=== PATIENT | male | born 1980 ===

== ENCOUNTER 2018-02-04 05:38 | Inpatient (IN) | payer OTHER ==
[2018-02-04] VITALS (14 sets, daily range): BP systolic 98–123; BP diastolic 49–74
[~2018-02-04] VITALS: Ht 165.1 cm; Wt 136.5 kg
[~2018-02-04 05:38] MED LIST: NKM; ceFAZolin sod 2 GM in D5W 110 ML IVPB ONE
[2018-02-04] MEDS ORDERED: LR 1000ml 1,000 ML IVLG SCH (06:19)
--- NOTE | 2018-02-04 06:23 | Immediate Post-Op Evaluation ---
Immediate Post-Op Evalulation Immediate Post-Op Evalulation Procedure: TLIF L5-S1 Date of Evaluation: Feb 04, 2018 Blood Products: 0 Pain Score (1-10): 2 Nausea: No Vomiting: No Complications 0 Patient Status: awake, reacts, patent, extubated, none Hydration Status: adequate Dru Grams Ancef IV Given Within 1 Hr of Incision: Yes Time Given: 07:41 Lukasz Burnett MD Feb 04, 2018 06:23
[2018-02-04] MEDS ORDERED: Zemuron 50mg/5ml Inj IV ONE (06:25)
[2018-02-04] MEDS ORDERED: HYDROcodone/Acetamin 7.5/325 tab ORAL PRN ×2 (06:30→13:00)
[2018-02-04] MEDS ORDERED: oxyCODONE HCL/Acetaminophen 5/325mg ORAL PRN (06:30)
[2018-02-04] MEDS ORDERED: LORazepam Inj 2mg/ml 1ml IV PRN (06:30)
[2018-02-04] MEDS ORDERED: Norco 5mg/325mg tab ORAL PRN ×2 (06:30→13:00)
[2018-02-04] MEDS ORDERED: Ketorolac 30mg Inj IV PRN ×2 (06:30)
[2018-02-04] MEDS ORDERED: Meperidine 50mg/ml Inj(FOR RIGORS ONLY) IVP PRN (06:30)
[2018-02-04] MEDS ORDERED: Acetaminophen (Non formulary) 100 ML IV ONE (06:30)
[2018-02-04] MEDS ORDERED: Midazolam 2mg/2ml Inj IVP PRN (06:30)
[2018-02-04] MEDS ORDERED: Hydromorphone 0.5mg/0.5ml inj IVP PRN (06:30)
[2018-02-04] MEDS ORDERED: Metoclopramide 10mg/2ml Inj IVP PRN (06:30)
[2018-02-04] MEDS ORDERED: fentaNYL 100 mcg/2 mL IV PRN (06:30)
[2018-02-04] MEDS ORDERED: DiphenhydrAMINE 50mg/ml Inj IVP PRN (06:30)
[2018-02-04] MEDS ORDERED: Atropine Sulfate 0.4mg/ml inj IVP PRN (06:30)
[2018-02-04] MEDS ORDERED: Dexamethasone 4mg/ml vial ONE (06:51)
[2018-02-04] MEDS ORDERED: Sodium Chloride 10ml vial INJ ONE (06:51)
[2018-02-04] MEDS ORDERED: Lidocaine 1% MPF 10mg/ml 5ml ONE (06:51)
[2018-02-04] MEDS ORDERED: Lidocaine 1% Plain 30 ml INJ ONE ×3 (06:51→10:47)
[2018-02-04] MEDS ORDERED: fentaNYL 100 mcg/2 mL IV ONE ×4 (06:52→10:56)
[2018-02-04] MEDS ORDERED: Vancomycin 1gm inj IVPB ONE (07:05)
[2018-02-04] MEDS ORDERED: Gelfoam Size TOPIC ONE (07:06)
[2018-02-04] MEDS ORDERED: Heparin 5000 units/ml inj ONE (07:06)
[2018-02-04] MEDS ORDERED: Thrombin 5000 units TOPIC ONE (07:06)
[2018-02-04] MEDS ORDERED: Bacitracin 50000 Units Vial ONE (07:07)
[2018-02-04] MEDS ORDERED: Bupivacaine w/Epi 0.5% 30ml Vial INJ ONE (07:07)
[2018-02-04] MEDS ORDERED: NS Irrig 1000ml ONE (07:30)
[2018-02-04] MEDS ORDERED: LR 1000ml ONE (07:30)
[2018-02-04] MEDS ORDERED: Propofol 1,000mg/ 100ml btl IV ONE (07:30)
[2018-02-04] MEDS ORDERED: Sterile Water Irrig 1000ml IRRIG ONE (07:30)
[2018-02-04] MEDS ORDERED: Heparin 1000 units/ml 1ml Vial ONE (07:44)
--- NOTE | 2018-02-04 07:54 | Pre-Procedure Note/Attestation ---
Pre-Procedure Note/Attestation Complete Prior to Procedure Procedure Narrative: TLIF L5S1 with instrumentation and iliac bone marrow aspiration Attestation I attest that I discussed the nature of the procedure; its benefits; risks and complications; and alternatives (and the risks and benefits of such alternatives ), prior to the procedure, with the patient (or the patient's legal electroplating sales representative). I attest that, if there was a reasonable possibility of needing a blood transfusion, the patient (or the patient's legal electroplating sales representative) was given the [facility] standardized written summary, pursuant to the David Pia Blood Safety Act ([place] Health and Safety Code # 1645, as amended). I attest that I re-evaluated the patient just prior to the surgery and that there has been no change in the patient's H&P, except as documented below: Edward Dill MD Feb 04, 2018 07:54
--- NOTE | 2018-02-04 08:14 | Anethesia Preoperative Eval ---
Anesthesia Pre-op PMH/ROS General Date of Evaluation: Feb 04, 2018 Time of Evaluation: 07:26 Anesthesiologist: Luis F ASA Score: ASA 2 Mallampati Score Class I : Soft palate, uvula, fauces, pillars visible Class II: Soft palate, uvula, fauces visible Class III: Soft palate, base of uvula visible Class IV: Only hard plate visible Mallampati Classification: Class II Surgeon: Aniyah Diagnosis: Back Pain Surgical Procedure: TLIF L5-S1 Anesthesia History: none Family History: no anesthesia problems Allergies: Coded Allergies: No Known Allergies (Unverified , 02/04/18) Medications: see eMAR Patient NPO?: Yes NPO Date: Feb 03, 2018 NPO Time: 2300 Past Medical History Other: obesity - BMI 32 Anesthesia Pre-op Phys. Exam Physician Exam Last Vital Signs Date Time Temp Pulse Resp B/P (MAP) Pulse Ox O2 Delivery O2 Flow Rate FiO2 02/04/18 06:52 Room Air 02/04/18 06:51 97.8 69 18 123/74 (90) 99 Constitutional: NAD Neurologic: CN 2-12 intact Cardiovascular: RRR Respiratory: CTA Gastrointestinal: S/NT/ND Airway Exam Mallampati Score: Class II MO: full ROM: full Teeth: intact Anesthesia Pre-op A/P Risk Assessment & Plan Assessment: ASA 2 Plan: GA, SED, GlideScope Go Status Change Before Surgery: No Pre-Antibiotics Dru Grams Ancef IV Given Within 1 Hr of Incision: Yes Time Given: 07:41 Lukasz Burnett MD Feb 04, 2018 08:14
--- NOTE | 2018-02-04 08:15 | Immediate Post-Op Evaluation ---
Immediate Post-Op Evalulation Immediate Post-Op Evalulation Procedure: TLIF L5-S1 Date of Evaluation: Feb 04, 2018 Time of Evaluation: 12:55 IV Fluids: 1000 LR Blood Products: 0 Estimated Blood Loss: 100 Urinary Output: 1000 Blood Pressure Systolic: 102 Blood Pressure Diastolic: 60 Pulse Rate: 101 Respiratory Rate: 16 O2 Sat by Pulse Oximetry: 98 Temperature (Fahrenheit): 97.4 Pain Score (1-10): 2 Nausea: No Vomiting: No Complications 0 Patient Status: awake, reacts, patent, extubated, none Hydration Status: adequate Dru Grams Ancef IV Given Within 1 Hr of Incision: Yes Time Given: 07:41 Lukasz Burnett MD Feb 04, 2018 08:15
[2018-02-04] MEDS ORDERED: Labetalol 5mg/ml 20ml vial IV ONE (08:37)
[2018-02-04] MEDS ORDERED: Naloxone 0.4mg/ml Inj ONE (11:42)
--- NOTE | 2018-02-04 12:47 | Brief Operative Note ---
Immediate Post Operative Note Operative Note Pre-op Diagnosis: lumbar spondylosis and radiculopathy Procedure: tlif l5s1 with iliac bone marrow aspiration Post-op Diagnosis: same as pre-op Findings: consistent w/pre-op dx studies Surgeon: Aniyah Mine Engineering Superintendent: Marcia Anesthesiologist: Mariusz Anesthesia: general Specimen: yes Complications: none Condition: stable Fluids: 1000cc fluids Estimated Blood Loss: volume - 100cc Drains: none Implant(s) used?: Yes Edward Dill MD Feb 04, 2018 12:47
[2018-02-04] MEDS ORDERED: HYDROmorphone 1mg/ml Carpuject SUBQ PRN (13:00)
[2018-02-04] MEDS ORDERED: Naloxone 0.4mg/ml Inj IVP PRN (13:00)
--- NOTE | 2018-02-04 13:02 | Diagnostic Imaging Report ---
INDICATION: Pain, intraoperative TECHNIQUE: Intraoperative imaging Fluoroscopy time: 31.4 seconds Total dose: 0.29713 mGym2 Total number of images: 5 COMPARISON: None FINDINGS: Intraoperative imaging demonstrates surgical tool's projected posterior to what are presumably the L3 and L5 vertebral bodies, subsequently a surgical tool projected posterior to what is presumably the L5-S1 disc. Subsequent images document posterior fusion and placement of a disc spacer at L5-S1 IMPRESSION: Intraoperative imaging, as described
[2018-02-04] MEDS ORDERED: ceFAZolin sod 1 GM in D5W 55 ML IV SCH (14:00)
[2018-02-04] MEDS: ceFAZolin sod 1 GM in D5W 55 ML IV SCH ×2 (15:55→23:58)
[2018-02-04] MEDS: D5 1/2NS 1,000 ML IV SCH ×2 (16:40→23:58)
[2018-02-04] MEDS: Docusate 100mg cap ORAL SCH (17:21)
[2018-02-05] MEDS: HYDROcodone/Acetamin 7.5/325 tab ORAL PRN ×5 (00:06→16:55)
[2018-02-05 04:00] VITALS: BP 114/59
[2018-02-05 06:30] LABS: BASOPHILS % (AUTO) 0.4 % (0.0-2.0); EOSINOPHILS % (AUTO) 0.3 % (0.0-3.0); HEMATOCRIT 34.8 % (42.0-52.0); HEMOGLOBIN 12.3 G/DL (14.2-18.0); LYMPHOCYTES % (AUTO) 12.2 % (20.0-45.0); MEAN CORPUSCULAR VOLUME 85 FL (80-99); MONOCYTES % (AUTO) 6.4 % (1.0-10.0); NEUTROPHILS % (AUTO) 80.8 % (45.0-75.0); PLATELET COUNT 253 K/UL (150-450); RED BLOOD COUNT 4.09 M/UL (4.70-6.10); RED CELL DISTRIBUTION WIDTH 10.9 % (11.6-14.8); WHITE BLOOD COUNT 13.9 K/UL (4.8-10.8)
[2018-02-05 08:00] VITALS: BP 105/55
[2018-02-05] MEDS: Docusate 100mg cap ORAL SCH ×2 (08:02→18:37)
[2018-02-05] MEDS: ceFAZolin sod 1 GM in D5W 55 ML IV SCH ×3 (08:02→23:50)
[2018-02-05] MEDS: D5 1/2NS 1,000 ML IV SCH ×2 (08:03→18:38)
[2018-02-05] MEDS: HYDROmorphone 1mg/ml Carpuject IVP PRN ×3 (09:06→18:38)
[2018-02-05 12:00] VITALS: BP 123/68
[2018-02-05 16:00] VITALS: BP 115/67
--- NOTE | 2018-02-05 16:02 | General Progress Note ---
Subjective Allergies: Coded Allergies: No Known Allergies (Unverified , 02/04/18) Subjective Patient doing well post op. Min LBP and no leg pain Ambulating and eating well AVSS A adn O times 3 Dressing is CDI 5/5 motor in the LE calves soft and nt cr less than 2 sec H and H stable over 30 Hct A: doing well on pod one oob and pt labs follow up medicine hv 200 cc will keep in for now dc tomorrow with pain meds Objective Last 24 Hour Vital Signs Date Time Temp Pulse Resp B/P (MAP) Pulse Ox O2 Delivery O2 Flow Rate FiO2 02/05/18 12:00 98.7 93 17 123/68 (86) 95 02/05/18 08:30 Nasal Cannula 2.0 28 02/05/18 08:30 98 Nasal Cannula 2.0 28 02/05/18 08:10 Nasal Cannula 2.0 02/05/18 08:00 98.2 99 18 105/55 (72) 99 02/05/18 04:00 97.7 96 18 114/59 (77) 97 02/04/18 23:38 97.7 97 20 101/62 (75) 97 02/04/18 21:00 Nasal Cannula 2.0 02/04/18 20:00 97.8 96 18 98/60 (73) 97 02/04/18 16:15 97.3 02/04/18 16:00 97.3 97 19 104/49 (67) 97 Intake and Output 02/04/18 02/05/18 19:00 07:00 Intake Total 2295 ml 1465 ml Output Total 1675 ml 1640 ml Balance 620 ml -175 ml Intake Oral 240 ml 360 ml IV Total 2055 ml 1105 ml Output Urine Total 1450 ml 1600 ml Drainage Total 125 ml 40 ml Estimated Blood Loss 100 ml Laboratory Tests 02/05/18 05:05: White Blood Count 13.9H, Red Blood Count 4.09L, Hemoglobin 12.3L, Hematocrit 34.8L, Mean Corpuscular Volume 85, Mean Corpuscular Hemoglobin 30.0, Mean Corpuscular Hemoglobin Concent 35.2, Red Cell Distribution Width 10.9L, Platelet Count 253, Mean Platelet Volume 8.5, Neutrophils (%) (Auto) 80.8H, Lymphocytes (%) (Auto) 12.2L, Monocytes (%) (Auto) 6.4, Eosinophils (%) (Auto) 0.3, Basophils (%) (Auto) 0.4 Height (Feet): 5 Height (Inches): 5.00 Weight (Pounds): 301 Edward Dill MD Feb 05, 2018 16:02
--- NOTE | 2018-02-05 16:16 | 48 Hour Post Anesthesia Eval ---
Post Anesthesia Evaluation Procedure: TLIF L5-S1 Date of Evaluation: Feb 05, 2018 Time of Evaluation: 16:14 Blood Pressure Systolic: 128 0: 74 Pulse Rate: 76 Respiratory Rate: 20 Temperature (Fahrenheit): 97.6 O2 Sat by Pulse Oximetry: 98 Airway: patent Nausea: No Vomiting: No Pain Intensity: 2 Hydration Status: adequate Cardiopulmonary Status: stable Mental Status/LOC: patient returned to baseline Follow-up Care/Observations: n/a Post-Anesthesia Complications: none Follow-up care needed: N/A Terry De La Torre MD Feb 05, 2018 16:16
[2018-02-05 20:00] VITALS: BP 104/63
--- NOTE | 2018-02-05 22:15 | Operative Note - Dictated ---
DATE OF OPERATION: 02/04/2018 PREOPERATIVE DIAGNOSIS: L5-S1 spondylosis and stenosis, left lower extremity radiculopathy with positive diskography and negative control. POSTOPERATIVE DIAGNOSIS: L5-S1 spondylosis and stenosis, left lower extremity radiculopathy with positive diskography and negative control. PROCEDURE PERFORMED: 1. Pedicle screw instrumentation at L5-S1. 2. Posterolateral arthrodesis at L5-S1. 3. Interbody arthrodesis at L5-S1. 4. Acquisition of bone marrow aspirate from right iliac bone with subsequent concentrate for fusion. 5. Placement of local autograft, allograft, and bone marrow aspirate concentrate for interbody fusion and posterolateral fusion. 6. Intraoperative use of microscope for microdissection. 7. Placement of biomechanical device at L5-S1. SURGEON: Edward Dill M.D. TRANSIT OPERATOR: Florentino Kennedy M.D. ANESTHESIA: General endotracheal anesthesia. ANESTHESIOLOGIST: Lukasz Burnett M.D. INTRAOPERATIVE FINDINGS: A disk collapse at L5-S1 with spondylosis and neural foraminal stenosis. ESTIMATED BLOOD LOSS: 100 mL. FLUIDS: 1 L of crystalloid. INDICATIONS: This is a pleasant gentleman, who failed nonoperative treatment and continued to have significant low back pain and left lower extremity radiculopathy with failed nonoperative treatments. Option for above treatment was given. Risks, alternatives, and benefits were discussed with the patient thoroughly. Risks include, but are not limited to anesthesia and complications including , medical complications including liver, kidney, cardiopulmonary deficits, bleeding, infection, dural tear, CSF leak, nerve root injury, pars fracture, instability, reherniation, and continued symptoms. DESCRIPTION OF OPERATION: The patient was brought into the operating room supine on a stretcher. Subsequently, appropriate IV lines were placed and 2 g of Ancef was administered. Anesthesia was induced. The patient was successfully intubated. Sequential compression devices were placed onto the bilateral lower extremities. A Rutledge was placed under sterile conditions. The patient was gently turned over onto the Lei frame table. All bony prominences were well padded. The abdomen was assured to lay freely. The L5-S1 interspace was positively identified with preoperative fluoroscopy and an indelible marker was used to lobito the midline at the level of L5-S1 interspace. The back was prepped and draped in the usual sterile fashion with alcohol, chlorhexidine scrub, ChloraPrep, and Ioban draping. Me and my fleet assistant were prepped and gowned appropriately and at this point, with the use of the intraoperatively sterilely draped microscope, an incision was made over the midline and attention was diverted to dissection with monopolar and bipolar cautery. Dissection was carried out at L5-S1 to the sacral ala as well as the transverse processes bilaterally at L5. Retractors were set in place and a radiopaque marker was placed at the lower pedicle level and lateral fluoroscopy revealed the marker to be at the level of the S1 pedicle and the L5-S1 interspace was positively identified. Attention now was diverted to the left side and an interlumbar laminotomy, medial facetectomy, and removal of ligamentum flavum was initially done. A skeletonization of the left S1 pedicle was done. Now, once the ligamentum flavum was removed, a large cuca was placed on the dura, protecting the neural elements and with a high-speed drill, a radical facetectomy and complete facetectomy of L5 and S1 on the left side was done. Hemostasis was achieved with Gelfoam, thrombin, and bipolar cautery. The exiting L5 nerve root was found to be stenosed and impinged, and once the total facetectomy was completed, the exiting nerve root was found to be free. Now, attention was diverted to the disk with a Williamson 4 retractor and the use of the intraoperatively sterilely draped microscope and with microdissection of neural elements, the neural elements were carefully medially retracted and a disk protrusion was found at L5-S1. With a #11 blade, a box incision was carried out at L5-S1 and with the use of different types of disk preparation, instruments including dilators, karissa, and box karissa, oval karissa, Sunil curettes, Jackson probe, pituitary rongeurs, forward angled straight, and Peapod, a radical diskectomy was accomplished at L5-S1. Endplate cartilage was removed. Endplate bone was well preserved. At this point, attention was diverted to acquiring the bone marrow aspirate. A bone marrow aspirate from the right iliac bone initially was done with a Jamshidi needle and three 10 mL syringes were filled with bone marrow aspirate and was handed off sterilely off the field for concentration. The concentrate was mixed with the local autograft as well as [place] allograft for later implantation into the interbody space and the posterolateral gutters. Once this was done, now attention was diverted to placing the RTI [employer] Surgical system was used and an 8 mm in height and 22 mm in length [employer] implant, biomechanical device was chosen and was tamped into place at L5-S1. Before this was done, interspinous process spacer distraction device was used to distract the disk space and then the implant was placed. Before the biomechanical device was placed, bone morphogenic protein Roel putty allograft, which was mixed with bone marrow aspirate concentrate was placed anteriorly to the biomechanical device and then the biomechanical device was placed, which was also packed with the same biological allograft, autograft, and bone marrow concentrate. Once this was done, AP and lateral fluoroscopy revealed that the biomechanical device to be in excellent position. There was no subsidence of the endplate. The endplates were stable and there was recreation of disk height and achievement of local lordosis at L5-S1. Once this was accomplished, now attention was diverted to completing the decompression. Further removal of the S1 lamina was done for a complete decompression, not only the foramina, both the lateral recess and the central canal Valsalva at 40 mmHg was done. There was no CSF leak and now attention was diverted to placement of the pedicle screws from the Doyle System. The mammillary processes were found and drilled appropriately and with Lenke probe, pedicle finders from the [employer] system. The center of the pedicles were found. Ball-tip probes were used to check the pedicle. There were no cortical breaches. Appropriate-sized caps were placed and the following pedicle screws were placed at L5 bilaterally, a 6.5 x 40 mm instrument and S1 bilaterally 6.5 x 40 mm screw. Each screw had excellent purchase and looked to be in excellent position on the AP and lateral fluoroscopy. Once this was done, stimulus-evoked EMG was done of each pedicle screw and until 20 amps of current, there was no conduction in the respective nerve roots and the screws were deemed safe. Pt remained stable throughout the case and now attention was diverted to doing the posterolateral arthrodesis, decortication of the lamina at the transverse processes of the sacral ala on the right side was done, and fat posterolateral gutter was packed with allograft, autograft, bone marrow, and bone marrow aspirate concentrate. The BMP was not used in that area. At this point, 4 mL of Tisseel fibrin glue was placed at the angle of the site to prevent posterior migration of BMP and attention now was diverted to placement of rods. Two 40 mm rods were chosen, was bent into a lordotic shape, and were placed in. Edward Dill M.D. DR: AMNA JOB#: [id number] CC: SIENNA
--- NOTE | 2018-02-05 22:15 | Operative Note - Dictated ---
DATE OF OPERATION: 02/05/2018 ADDENDUM Set screws were now placed appropriately and there was no cross threading. There were four appropriately as well and now for the posterolateral arthrodesis, it was completed and allograft, autograft, and bone marrow aspirate were placed into the posterolateral gutters. Before this was done, the wound was copiously irrigated multiple times during the case with triple antibiotic solution. Valsalva was done at 40 mmHg. There was no CSF leak and now, attention was diverted to closure. There was minimal bleeding. Hemostasis was achieved with bipolar cautery, Gelfoam, thrombin, and FloSeal. A subfascial Hemovac drain was placed. The dorsal lumbar fascia was closed with #1 Vicryl sutures in a watertight interrupted fashion. Triple antibiotic solution again was placed. A 1 g of vancomycin powder was placed, half of it subfascial and half of it suprafascial, and the dermal and subcuticular layers were closed with 2-0 Vicryl sutures. The skin was closed with Dermabond. Sterile dressing tape was placed. All sponge, needle, and instrument counts were correct. There were no complications during the case. EBL was 100 mL. Fluids were 1000 mL of crystalloid. At this point, the patient was turned supine and extubated in stable condition, was taken to the recovery room in stable condition, was found to be neurovascularly intact, was admitted to the hospital for monitoring and postoperative instructions were given. Edward Dill M.D. DR: JAY JAY JOB#: [id number] CC:
[2018-02-06] VITALS: BP 112/68
[2018-02-06 04:00] VITALS: BP 118/76
[2018-02-06] MEDS: D5 1/2NS 1,000 ML IV SCH ×2 (05:00→14:50)
[2018-02-06 07:55] LABS: BASOPHILS % (AUTO) 1.5 % (0.0-2.0); EOSINOPHILS % (AUTO) 3.3 % (0.0-3.0); HEMATOCRIT 33.6 % (42.0-52.0); HEMOGLOBIN 11.4 G/DL (14.2-18.0); LYMPHOCYTES % (AUTO) 30.3 % (20.0-45.0); MEAN CORPUSCULAR VOLUME 86 FL (80-99); MONOCYTES % (AUTO) 7.1 % (1.0-10.0); NEUTROPHILS % (AUTO) 57.8 % (45.0-75.0); PLATELET COUNT 185 K/UL (150-450); RED BLOOD COUNT 3.92 M/UL (4.70-6.10); RED CELL DISTRIBUTION WIDTH 11.5 % (11.6-14.8); WHITE BLOOD COUNT 10.4 K/UL (4.8-10.8)
[2018-02-06 08:00] VITALS: BP 95/70
[2018-02-06] MEDS: ceFAZolin sod 1 GM in D5W 55 ML IV SCH ×2 (08:14→16:02)
[2018-02-06] MEDS: Docusate 100mg cap ORAL SCH ×2 (08:15→17:35)
[2018-02-06 12:00] VITALS: BP 111/75
[2018-02-06] MEDS ORDERED: D5 1/2NS 1000ml IV ONE (14:34)
[2018-02-06 16:00] VITALS: BP 121/73
[2018-02-06] MEDS: HYDROcodone/Acetamin 7.5/325 tab ORAL PRN (18:49)
[2018-02-06 20:00] VITALS: BP 116/67
[2018-02-07] VITALS: BP 108/64
[2018-02-07] MEDS: D5 1/2NS 1,000 ML IV SCH ×3 (01:18→22:24)
[2018-02-07] MEDS: ceFAZolin sod 1 GM in D5W 55 ML IV SCH ×3 (01:19→15:49)
[2018-02-07 04:00] VITALS: BP 121/77
[2018-02-07 08:00] VITALS: BP 117/80
[2018-02-07] MEDS ORDERED: D5 1/2NS 1000ml IV ONE (08:15)
[2018-02-07] MEDS: Docusate 100mg cap ORAL SCH ×2 (08:47→18:00)
[2018-02-07] MEDS: HYDROcodone/Acetamin 7.5/325 tab ORAL PRN ×3 (10:00→22:24)
[2018-02-07 12:00] VITALS: BP 141/67
[2018-02-07 16:00] VITALS: BP 130/70
--- NOTE | 2018-02-07 17:19 | General Progress Note ---
Subjective Date patient seen: Feb 05, 2018 Allergies: Coded Allergies: No Known Allergies (Unverified , 02/04/18) Subjective Patient doing well post op. Min LBP and no leg pain Ambulating and eating well AVSS A adn O times 3 Dressing is CDI 5/5 motor in the LE calves soft and nt cr less than 2 sec H and H stable over 30 Hct A: doing well on pod one oob and pt labs follow up medicine hv 200 cc will keep in for now dc tomorrow with pain meds Objective Last 24 Hour Vital Signs Date Time Temp Pulse Resp B/P (MAP) Pulse Ox O2 Delivery O2 Flow Rate FiO2 02/07/18 16:00 99.0 88 18 130/70 (90) 98 02/07/18 13:50 97.9 02/07/18 12:00 99.6 100 19 141/67 (91) 97 02/07/18 09:00 Room Air 02/07/18 08:00 98.8 96 18 117/80 (92) 99 02/07/18 04:35 100.2 02/07/18 04:34 100.2 02/07/18 04:00 100.8 104 20 121/77 (92) 97 02/07/18 00:00 99.2 103 18 108/64 (79) 96 02/06/18 21:00 Room Air 02/06/18 20:00 99.3 98 20 116/67 (83) 97 02/06/18 18:00 100.2 Intake and Output 02/06/18 02/07/18 19:00 07:00 Intake Total 580 ml 2455 ml Output Total 330 ml 1030 ml Balance 250 ml 1425 ml Intake Oral 480 ml 600 ml IV Total 100 ml 1855 ml Output Urine Total 300 ml 1000 ml Drainage Total 30 ml 30 ml # Voids 3 Height (Feet): 5 Height (Inches): 5.00 Weight (Pounds): 301 Edward Dill MD Feb 07, 2018 17:19
--- NOTE | 2018-02-07 17:23 | General Progress Note ---
Subjective Allergies: Coded Allergies: No Known Allergies (Unverified , 02/04/18) Subjective 02-05-18 Patient doing well post op. Min LBP and no leg pain Ambulating and eating well AVSS A adn O times 3 Dressing is CDI 5/5 motor in the LE calves soft and nt cr less than 2 sec H and H stable over 30 Hct A: doing well on pod one oob and pt labs follow up medicine hv 200 cc will keep in for now dc tomorrow with pain meds 02-07-18 computer not allowing to refresh prior note Doing well. Some sweats but no leg pain. LBP. Avss a and o times 3; anxious inc cdi hv out 5/5 motor in the le calves soft and nt lt intact Labs stable a: doing well with anxiety ativan finished abx oob and pt dc tomorrow Objective Last 24 Hour Vital Signs Date Time Temp Pulse Resp B/P (MAP) Pulse Ox O2 Delivery O2 Flow Rate FiO2 02/07/18 16:00 99.0 88 18 130/70 (90) 98 02/07/18 13:50 97.9 02/07/18 12:00 99.6 100 19 141/67 (91) 97 02/07/18 09:00 Room Air 02/07/18 08:00 98.8 96 18 117/80 (92) 99 02/07/18 04:35 100.2 02/07/18 04:34 100.2 02/07/18 04:00 100.8 104 20 121/77 (92) 97 02/07/18 00:00 99.2 103 18 108/64 (79) 96 02/06/18 21:00 Room Air 02/06/18 20:00 99.3 98 20 116/67 (83) 97 02/06/18 18:00 100.2 Intake and Output 02/06/18 02/07/18 19:00 07:00 Intake Total 580 ml 2455 ml Output Total 330 ml 1030 ml Balance 250 ml 1425 ml Intake Oral 480 ml 600 ml IV Total 100 ml 1855 ml Output Urine Total 300 ml 1000 ml Drainage Total 30 ml 30 ml # Voids 3 Height (Feet): 5 Height (Inches): 5.00 Weight (Pounds): 301 Edward Dill MD Feb 07, 2018 17:23
[2018-02-07] MEDS ORDERED: LORazepam 1mg tab ORAL PRN (17:30)
[2018-02-07 20:00] VITALS: BP 112/61
[2018-02-08] VITALS (7 sets, daily range): BP systolic 110–130; BP diastolic 63–83
[2018-02-08] MEDS: ceFAZolin sod 1 GM in D5W 55 ML IV SCH ×2 (00:33→07:51)
[2018-02-08] MEDS: HYDROmorphone 1mg/ml Carpuject IVP PRN (02:41)
[2018-02-08] MEDS: D5 1/2NS 1,000 ML IV SCH ×2 (06:48→16:42)
[2018-02-08] MEDS: Docusate 100mg cap ORAL SCH ×2 (08:46→18:00)
[2018-02-08 18:18] LABS: BASOPHILS % (AUTO) 1.2 % (0.0-2.0); EOSINOPHILS % (AUTO) 4.9 % (0.0-3.0); HEMATOCRIT 35.3 % (42.0-52.0); HEMOGLOBIN 12.3 G/DL (14.2-18.0); LYMPHOCYTES % (AUTO) 23.7 % (20.0-45.0); MEAN CORPUSCULAR VOLUME 86 FL (80-99); MONOCYTES % (AUTO) 4.8 % (1.0-10.0); NEUTROPHILS % (AUTO) 65.5 % (45.0-75.0); PLATELET COUNT 272 K/UL (150-450); RED BLOOD COUNT 4.13 M/UL (4.70-6.10); RED CELL DISTRIBUTION WIDTH 10.7 % (11.6-14.8); WHITE BLOOD COUNT 10.3 K/UL (4.8-10.8)
[2018-02-08 18:26] LABS: ANION GAP 8 mmol/L (5-15); BLOOD UREA NITROGEN 14 mg/dL (7-18); CALCIUM 8.9 MG/DL (8.5-10.1); CARBON DIOXIDE 30 MMOL/L (21-32); CHLORIDE 102 MMOL/L (98-107); CREATININE 1.2 MG/DL (0.55-1.30); POTASSIUM 4.1 MMOL/L (3.5-5.1); SODIUM 140 MMOL/L (136-145)
[2018-02-08 18:30] LABS: ALANINE AMINOTRANSFERASE 45 U/L (12-78); ALBUMIN 3.3 G/DL (3.4-5.0); ALBUMIN/GLOBULIN RATIO 0.9 (1.0-2.7); ALKALINE PHOSPHATASE 65 U/L (46-116); ASPARTATE AMINO TRANSFERASE 23 U/L (15-37); BILIRUBIN,TOTAL 0.4 MG/DL (0.2-1.0)
[2018-02-08 18:50] LABS: BILIRUBIN, URINE NEGATIVE (NEGATIVE); COLOR,URINE PALE YELLOW; GLUCOSE, URINE (UA) NEGATIVE (NEGATIVE); KETONES,URINE NEGATIVE (NEGATIVE); LEUKOCYTE ESTERASE ,URINE NEGATIVE (NEGATIVE); NITRITE,URINE NEGATIVE (NEGATIVE); PH,URINE 7 (4.5-8.0); PROTEIN,URINE NEGATIVE (NEGATIVE); UROBILINOGEN,URINE NORMAL MG/DL (0.0-1.0)
[2018-02-08 18:52] LABS: APPEARANCE,URINE CLEAR
--- NOTE | 2018-02-08 19:26 | Cardiology Progress Note ---
Assessment/Plan Assessment/Plan [id number] likey narcotic induced perspiration agree with dc of narcotic labs seem ok b12 adn tsh ordered for am keep on acetaminophen for now if possible to see if sx resolve thank you Objective Last 24 Hour Vital Signs Date Time Temp Pulse Resp B/P (MAP) Pulse Ox O2 Delivery O2 Flow Rate FiO2 02/08/18 16:00 99.0 106 21 128/73 (91) 100 02/08/18 12:00 98.2 96 20 130/83 (99) 100 02/08/18 09:00 Room Air 02/08/18 08:00 98.7 85 21 127/78 (94) 100 02/08/18 04:00 99.5 86 18 119/64 (82) 99 02/08/18 00:00 98.6 91 18 127/63 (84) 98 02/07/18 21:00 Room Air 02/07/18 20:00 98.4 84 18 112/61 (78) 97 Intake and Output 02/07/18 02/08/18 19:00 07:00 Intake Total 1500 ml Output Total 800 ml 700 ml Balance -800 ml 800 ml Intake Oral 400 ml IV Total 1100 ml Output Urine Total 800 ml 700 ml Laboratory Tests Test 02/08/18 17:55 02/08/18 18:10 Urine Color Pale yellow Urine Appearance Clear Urine pH 7 (4.5-8.0) Urine Specific [place] 1.005 (1.005-1.035) Urine Protein Negative (NEGATIVE) Urine Glucose (UA) Negative (NEGATIVE) Urine Ketones Negative (NEGATIVE) Urine Blood Negative (NEGATIVE) Urine Nitrite Negative (NEGATIVE) Urine Bilirubin Negative (NEGATIVE) Urine Urobilinogen Normal MG/DL (0.0-1.0) Urine Leukocyte Esterase Negative (NEGATIVE) Urine RBC 0 /HPF (0 - 0) Urine WBC 0 /HPF (0 - 0) Urine Squamous Epithelial Cells None /LPF (NONE/OCC) Urine Bacteria None /HPF (NONE) White Blood Count 10.3 K/UL (4.8-10.8) Red Blood Count 4.13 M/UL (4.70-6.10) L Hemoglobin 12.3 G/DL (14.2-18.0) L Hematocrit 35.3 % (42.0-52.0) L Mean Corpuscular Volume 86 FL (80-99) Mean Corpuscular Hemoglobin 29.9 PG (27.0-31.0) Mean Corpuscular Hemoglobin Concent 34.9 G/DL (32.0-36.0) Red Cell Distribution Width 10.7 % (11.6-14.8) L Platelet Count 272 K/UL (150-450) Mean Platelet Volume 7.7 FL (6.5-10.1) Neutrophils (%) (Auto) 65.5 % (45.0-75.0) Lymphocytes (%) (Auto) 23.7 % (20.0-45.0) Monocytes (%) (Auto) 4.8 % (1.0-10.0) Eosinophils (%) (Auto) 4.9 % (0.0-3.0) H Basophils (%) (Auto) 1.2 % (0.0-2.0) Sodium Level 140 MMOL/L (136-145) Potassium Level 4.1 MMOL/L (3.5-5.1) Chloride Level 102 MMOL/L (98-107) Carbon Dioxide Level 30 MMOL/L (21-32) Anion Gap 8 mmol/L (5-15) Blood Urea Nitrogen 14 mg/dL (7-18) Creatinine 1.2 MG/DL (0.55-1.30) Estimat Glomerular Filtration Rate > 60 mL/min (>60) Glucose Level 119 MG/DL (74-106) H Calcium Level 8.9 MG/DL (8.5-10.1) Total Bilirubin 0.4 MG/DL (0.2-1.0) Aspartate Amino Transf (AST/SGOT) 23 U/L (15-37) Alanine Aminotransferase (ALT/SGPT) 45 U/L (12-78) Alkaline Phosphatase 65 U/L (46-116) Total Protein 7.0 G/DL (6.4-8.2) Albumin 3.3 G/DL (3.4-5.0) L Globulin 3.7 g/dL Albumin/Globulin Ratio 0.9 (1.0-2.7) L Salvador Jimenez MD Feb 08, 2018 19:26
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
[2018-02-09] VITALS: BP_SYST 112; BP_SYST 113; BP_SYST 115; BP_DIAS 72; BP_DIAS 74
[2018-02-09] MEDS: D5 1/2NS 1,000 ML IV SCH ×2 (02:48→12:48)
[2018-02-09 04:00] VITALS: BP 108/74
[2018-02-09 08:00] VITALS: BP 115/78
[2018-02-09 08:10] LABS: ANION GAP 11 mmol/L (5-15); BLOOD UREA NITROGEN 13 mg/dL (7-18); CALCIUM 9.2 MG/DL (8.5-10.1); CARBON DIOXIDE 26 MMOL/L (21-32); CHLORIDE 102 MMOL/L (98-107); POTASSIUM 4.1 MMOL/L (3.5-5.1); SODIUM 139 MMOL/L (136-145)
[2018-02-09] MEDS: Docusate 100mg cap ORAL SCH (08:23)
[2018-02-09 12:00] VITALS: BP 134/74
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
== END 2018-02-09 13:22 | disposition home or self-care (01) | DRG 454 ==
LOC: SDSOVERFLO 05:38 → 3E 15:17
PROC: 07DR3ZZ Extraction of Iliac Bone Marrow, Percutaneous Approach (ICD-10-PCS; principal; 2018-02-04 07:30)
PROC: 0SG3071 Fusion of Lumbosacral Joint with Autologous Tissue Substitute, Posterior Approach, Posterior Column, Open Approach (ICD-10-PCS; 2018-02-05)
PROC: 4A11X4G Monitoring of Peripheral Nervous Electrical Activity, Intraoperative, External Approach (ICD-10-PCS; 2018-02-05)
PROC: 0SG30AJ Fusion of Lumbosacral Joint with Interbody Fusion Device, Posterior Approach, Anterior Column, Open Approach (ICD-10-PCS; 2018-02-05)
PROC: 0ST40ZZ Resection of Lumbosacral Disc, Open Approach (ICD-10-PCS; 2018-02-05)
DX: M47.27 Other spondylosis with radiculopathy, lumbosacral region (principal); Z68.43 Body mass index [BMI] 50.0-59.9, adult; M48.07 Spinal stenosis, lumbosacral region; E66.9 Obesity, unspecified; R61 Generalized hyperhidrosis; T40.2X5A Adverse effect of other opioids, initial encounter; Y92.239 Unspecified place in hospital as the place of occurrence of the external cause
CPT/HCPCS: 36415; 72020; 76001; 80048; 80053; 81001; 82607; 83036; 84443; 85025; 86850; 86900; 86901; 87081; 94003; 94150; 94760; J2405